=== PATIENT | male | born 1985 | race Caucasian/White ===

== ENCOUNTER 2021-05-24 22:26 | Emergency (ER) | payer BC ==
[~2021-05-24] VITALS: Ht 180.3 cm; Wt 102.2 kg
[2021-05-24 22:54] VITALS: BP 114/71
[2021-05-24] MEDS ORDERED: LIDOCAINE-MPF 1%, 5ML ONE (23:14)
[2021-05-24] MEDS ORDERED: DIPH,PERTUSS(ACELL),TET VAC/PF 0.5 ML IM-VACC ONE (23:54)
[2021-05-25] MEDS ORDERED: DIPH,PERTUSS(ACELL),TET VAC/PF 0.5 ML IM-VACC ONE
[2021-05-25] MEDS ORDERED: LIDOCAINE-MPF 1%, 5ML INFIL ONE
== END 2021-05-25 00:51 | disposition home or self-care (01) ==
LOC: ED 22:56
DX: S61.411A Laceration without foreign body of right hand, initial encounter (principal); M79.671 Pain in right foot; X58.XXXA Exposure to other specified factors, initial encounter; Y93.89 Activity, other specified; Y92.009 Unspecified place in unspecified non-institutional (private) residence as the place of occurrence of the external cause; Y99.8 Other external cause status
CPT/HCPCS: 12001; 12041; 90471; 90715; 99283; 99284